=== PATIENT | male | born 1980 | race American Indian/Alaskan Native ===

== ENCOUNTER 2018-07-17 08:12 | Emergency (ER) | payer OTHER ==
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
[2018-07-17 09:40] VITALS: BP 127/74
== END 2018-07-17 09:38 | disposition home or self-care (01) ==
LOC: ED 08:12
DX: T23.002D Burn of unspecified degree of left hand, unspecified site, subsequent encounter (principal); T23.001D Burn of unspecified degree of right hand, unspecified site, subsequent encounter; T22.012D Burn of unspecified degree of left forearm, subsequent encounter; G89.18 Other acute postprocedural pain; F17.200 Nicotine dependence, unspecified, uncomplicated; Z76.0 Encounter for issue of repeat prescription; X58.XXXD Exposure to other specified factors, subsequent encounter
CPT/HCPCS: 99282